=== PATIENT | female | born 1955 | race Caucasian/White ===

== ENCOUNTER 2022-12-13 08:32 | Inpatient (IN) ==
--- NOTE | 2022-11-22 14:53 | PAT Medication Instructions ---
Medication Instructions Date of Service November 22, 2022 Home Medications Medication Instructions Recorded meclizine 25 mg tablet 25 mg PO BID PRN dizziness #90 tabs 06/02/22 cyclobenzaprine 10 mg tablet 10 mg PO HS #30 tabs 10/25/22 meclizine 25 mg tablet 25 mg PO BID PRN cyclobenzaprine 10 mg tablet 10 mg PO HS alpha lipoic acid 600 mg tablet,extended release 600 mg PO QAM docusate sodium 100 mg capsule (Stool Softener) 100 mg PO QAM fexofenadine 180 mg tablet (Eduarda Allergy) 180 mg PO QAM STOP taking 2 weeks before surgery (or as soon as possible if surgery is within 2 weeks) alpha lipoic acid 600 mg tablet,extended release 600 mg PO QAM DO NOT take the morning of surgery docusate sodium 100 mg capsule (Stool Softener) 100 mg PO QAM fexofenadine 180 mg tablet (Eduarda Allergy) 180 mg PO QAM Take morning of surgery With a small sip of water, OTHERWISE NOTHING TO EAT OR DRINK AFTER MIDNIGHT: meclizine 25 mg tablet 25 mg PO BID PRN(if needed) Take evening before surgery meclizine 25 mg tablet 25 mg PO BID PRN(if needed) cyclobenzaprine 10 mg tablet 10 mg PO HS Other Notes If you have any questions please call us at [phone] or [phone] or [phone] or [phone]
--- NOTE | 2022-11-29 13:28 | Anesthesiology Consultation ---
Date of Service November 29, 2022 Assessment & Plan (1) Encounter for pre-operative examination: Chart Review Chart Review: Acceptable Risk for Surgery (pending PCP clearance 12/01/22) and Patient seen in Pre Admission Testing - Awaiting PCP clearance 12/01/22 Per PAT appt on 11/29/22, patient denies any recent travel or large group activities. Pt is NOT vaccinated for Covid. Will leave to surgeon's discretion if preop Covid testing needed. Educated on importance of using Covid precautions one week prior to surgery Teaching & Discussion Pre-Anesthesia Teaching/Discussion Notes: Instructed NPO after midnight before surgery,except medications with 15 cc of water. Medication instructions provided according to the PAT guidelines. History Surgery Operation Date: 12/13/22 09:55 Proposed Procedures p L5-S1 Decompression and Fusion, Spinal Cord Monitoring - Nas Kendall DO Height/Weight Height: 5 ft 5 in Weight: 107.4 kg Allergies Allergy/AdvReac Type Severity Reaction Status Date / Time ciprofloxacin Allergy Mild Rash Verified 11/19/22 12:15 Penicillins Allergy rash Verified 11/19/22 12:15 Medications Home Medications Medication Instructions Recorded Confirmed Last Taken meclizine 25 mg tablet 25 mg PO BID PRN dizziness #90 tabs 06/02/22 11/19/22 Unknown alpha lipoic acid 600 mg 600 mg PO QAM 11/19/22 11/19/22 Unknown tablet,extended release docusate sodium 100 mg capsule 100 mg PO QAM 11/19/22 11/19/22 Unknown (Stool Softener) fexofenadine 180 mg tablet 180 mg PO QAM 11/19/22 11/19/22 Unknown (Eduarda Allergy) cyclobenzaprine 10 mg tablet 10 mg PO HS #30 tabs 11/24/22 Unknown Past Medical History Medical History Benign paroxysmal positional vertigo Currently stable History of diverticulitis (~2014) complicated by perforation, s/p partial bowel resection, s/p colostomy with reversal continues with chronic constipation - at baseline Hyperlipidemia 10 year ASCVD risk score 6.3%. 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 Exercise / Class Metabolic Activity II 4-5 Yardwork/Stairs/Walk up hill (one flight of stairs - no chest pain or SOB ) Past Family History Family History Other No family history of adverse response to anesthesia Past Surgical History Surgical History H/O arthroscopic knee surgery History of colonoscopy (~2014) History of colostomy reversal History of tonsillectomy History of tubal ligation S/P colostomy hx Past Anesthesia History No Hx of Anesthesia Complications and No Family Hx of Anesthesia Complications (with exception to daughter - PONV) History of PONV No Hx of PONV and No Hx of Motion Sickness Social History Smoking Status: Never smoker Do You Dip or Chew Tobacco: No Hx Alcohol Use: No Hx Substance Use: No substance use type: does not use Review of Systems Occ reflux- relieved Gaviscon Hx of snoring - no hx of sleep study S/p blood transfusion 2014 s/p bowel perforation Patient denies chest pain, shortness of breath, dyspnea on exertion, cough, wheezing, palpitations. No hx of seizures, stroke, DC. No hx of blood clots. Physical Exam Vital Signs VITALS BP 132/82 P 90 TEMP 97.8 SP02 96% RESP 16 Constitutional no acute distress ENMT Mouth: no TMJ clicking Thyromental Distance: > or= 3.5 Finger Breadths (3.5) Mallampati Class: II Missing molar Cap to top front teeth Braymer to molar Neck + thick neck; neck extension not limited Respiratory normal respiratory effort; no respiratory distress Auscultation: lungs clear to auscultation bilaterally; no wheezes Cardiovascular Rate/Rhythm: regular rate and regular rhythm Heart Sounds: no murmur Vessels: no carotid bruit Musculoskeletal Spine: no pain with cervical ROM Extremities: extremities normal to inspection Psychiatric Orientation: alert Lab Results Anesthesia Preop Results Results Anesthesia Widget: WBC 7.43 K/ul (4.8-10.8) 11/29/22 Hgb 15.0 g/dl (12.0-16.0) 11/29/22 Hct 44.3 % (37.0-47.0) 11/29/22 Plt 216 K/uL (130-400) 11/29/22 Na 140 mmol/L (136-145) 11/29/22 K 4.1 mmol/L (3.5-5.1) 11/29/22 Cl 106 mmol/L (98-107) 11/29/22 CO2 27 mmol/L (21-32) 11/29/22 BUN 18 mg/dl (6-23) 11/29/22 Creat 0.62 mg/dl (0.6-1.2) 11/29/22 Glucose Level 74 mg/dl (70-99(Fasting)) 11/29/22 PT 10.0 Seconds (9.0-12.0) 11/29/22 PTT 26.8 Seconds (21.0-31.0) 11/29/22 INR 0.9 (0.9-1.1) 11/29/22 Urine Color Yellow 11/29/22 Urine Appearance Clear (Clear) 11/29/22 Urine pH 7.0 (4.5-7.5) 11/29/22 Urine Specific [place] 1.016 (1.000-1.030) 11/29/22 Urine Protein Negative (Negative) 11/29/22 Urine Glucose (UA) Negative (Negative) 11/29/22 Urine Ketones Negative (Negative) 11/29/22 Urine Blood Negative (Negative) 11/29/22 Urine Nitrite Negative (Negative) 11/29/22 Urine Bilirubin Negative (Negative) 11/29/22 Urine Urobilinogen Negative (Negative) 11/29/22 Urine Leukocyte Esterase 1+ (Negative) H 11/29/22 Urine WBC (Auto) 1-5 /hpf (0-5) 11/29/22 Urine RBC (Auto) 0-4 /hpf (0-4) 11/29/22 Urine Hyaline Casts (Auto) 1-5 /lpf (0-5) 11/29/22 Urine Epithelial Cells (Auto) >30 /lpf (0-5) H 11/29/22 Urine Bacteria (Auto) 1+ (Negative) H 11/29/22 Blood Type O Positive 11/29/22 Antibody Screen NEGATIVE 11/29/22 Testing Electrocardiogram Date: 11/29/22 Findings: + NSR @ (85bpm) Rightward axis Chest X-Ray Date: 11/29/22 Findings: + NAD FINDINGS: PA and lateral chest radiographs are obtained. No prior studies are av ailable for comparison at the time of dictation. The heart is mildly enlarged noting atherosclerotic calcification of the thoracic aorta. The pulmonary vasculature is noncongested. There is mild elevation of right hemidiaphragm and bibasilar atelectasis. The lungs and pleural spaces are otherwise clear. There is no pneumothorax. The skeletal structures are osteopenic. The bony thorax appears intact. Degenerative change is noted in the spine. COVID-19 Risk Screen Screening Information COVID-19 Screen Date: 11/29/22 Exposure 21 Days Family/Household +COVID Last 21 Days: No Exposure 10 Days Any COVID Exposure Last 10 Days: No Symptoms Last 10 Days Experienced COVID Sx Last 10 Days: No + COVID 0-90 Days COVID + in Last 0-90 Days: No Risk Plan COVID Risk Plan: No Risk Identified Patient Education COVID Preop Screening Education Complete: Yes
[~2022-12-13 08:32] MED LIST: ACETAMINOPHEN 500 MG TAB PO SCH; CLINDAMYCIN/D5W 900 MG/50 ML BAG IV SCH; CeleBREX 200 MG CAP PO SCH; GABAPENTIN 300 MG CAP PO SCH; LR 15ML/HR IV SCH; LR 60ML/HR IV SCH
[2022-12-13] MEDS ORDERED: fentaNYL citrate PF 100 MCG/2 ML VIAL ONE (09:06)
[2022-12-13] MEDS ORDERED: MIDAZOLAM HCL 1 MG/ML 2ML VIAL ONE (09:06)
--- NOTE | 2022-12-13 09:17 | History & Physical Bridge Note ---
Date of Service December 13, 2022 History & Physical Bridge Note I have examined the patient, reviewed the History & Physical and in the interval since the performance of the History & Physical I have noted the following changes of clinical significance: no changes noted
--- NOTE | 2022-12-13 09:18 | History & Physical Report ---
Date of Service December 13, 2022 Assessment & Plan (1) Neurogenic claudication due to lumbar spinal stenosis: Plan: L5-S1 decompression and fusion History of Present Illness Chief Complaint: Back and leg pain Primary Care Provider: DERREK Ivory This is a 67-year-old female presents with chronic persistent back and leg pain and failing since course of nonoperative care is here for surgical invention. Allergies Allergy/AdvReac Type Severity Reaction Status Date / Time ciprofloxacin Allergy Mild Rash, hives Verified 12/13/22 08:55 Penicillins Allergy rash Verified 12/13/22 08:55 Home Medications Medication Instructions Recorded Confirmed Type meclizine 25 mg tablet 25 mg PO BID PRN dizziness #90 tabs 06/02/22 12/13/22 Rx alpha lipoic acid 600 mg 600 mg PO QAM 11/19/22 12/13/22 History tablet,extended release docusate sodium 100 mg capsule 100 mg PO QAM 11/19/22 12/13/22 History (Stool Softener) fexofenadine 180 mg tablet 180 mg PO QAM 11/19/22 12/13/22 History (Eduarda Allergy) cyclobenzaprine 10 mg tablet 10 mg PO HS #30 tabs 11/24/22 12/13/22 Rx Past Med/Surg History Medical History (Updated 12/13/22 @ 09:18 by Nas Kendall DO) Benign paroxysmal positional vertigo Currently stable History of diverticulitis (~2014) complicated by perforation, s/p partial bowel resection, s/p colostomy with reversal Hyperlipidemia 10 year ASCVD risk score 6.3%. 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 Surgical History H/O arthroscopic knee surgery History of colonoscopy (~2014) History of colostomy reversal History of tonsillectomy History of tubal ligation S/P colostomy hx S/P partial resection of colon (~2014) Family History Other No family history of adverse response to anesthesia Social History Smoking Status: Never smoker Second Hand Exposure: No; Do You Dip or Chew Tobacco: No; Hx Alcohol Use: No Hx Substance Use: No Preferred Language: Faroese Communication Ability: Effective Test Automation Architect Required: No Beliefs That Will Affect Care: None marital status: Current Living Situation: Spouse current occupational status: employed 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
[2022-12-13] MEDS ORDERED: ATROPINE SULFATE 0.1 MG/ML 10ML SYR IV PRN (09:35)
[2022-12-13] MEDS ORDERED: ONDANSETRON INJ 2 MG/ML 2 ML VIAL IV PRN ×2 (09:35→13:19)
[2022-12-13] MEDS ORDERED: ePHEDrine sulfate 50 MG/ML AMP IV PRN (09:35)
[2022-12-13] MEDS ORDERED: BUPIVACAINE/EPINEPHRINE 0.25% 1:200,000 30 ML VIAL ONE (09:41)
[2022-12-13] MEDS ORDERED: FLOSEAL HEMOSTATIC MATRIX 10ML TOP ONE (10:30)
[2022-12-13] MEDS: ceFAZolin 330 MG/ML 1 GM VIAL ONE ×2 (10:30→11:44)
[2022-12-13] MEDS ORDERED: GLYCOPYRROLATE 0.2 MG/ML VIAL ONE (11:25)
[2022-12-13] MEDS ORDERED: LIDOCAINE 2% 2 ML VIAL/AMP(20MG/ML) INFIL ONE (11:25)
[2022-12-13] MEDS ORDERED: DEXAMETHASONE SOD INJ 4 MG/ML VIAL ONE (11:25)
[2022-12-13] MEDS ORDERED: ONDANSETRON INJ 2 MG/ML 2 ML VIAL ONE (11:25)
[2022-12-13] MEDS ORDERED: PROPOFOL IV EMULSION 10 MG/ML 20 ML VIAL IV ONE (11:25)
[2022-12-13] MEDS ORDERED: NEOSTIGMINE METHYLSULFATE 1 MG/ML 10ML VIAL ONE (11:25)
[2022-12-13] MEDS ORDERED: PHENYLEPHRINE 100MCG/ML 5ML SYR ONE (11:25)
[2022-12-13] MEDS ORDERED: ROCURONIUM BROMIDE 10 MG/ML 5 ML VIAL IV ONE (11:25)
--- NOTE | 2022-12-13 11:29 | Operative Report ---
Post Operative Report Pre & Post Diagnosis Operation Date: 12/13/22 09:55 Pre-Op Diagnosis: Neurogenic claudication due to lumbar spinal stenosis Spondylolisthesis L5-S1 morbid obesity Post-Op Diagnosis: Same I identified the patient and participated in the time-out.: Yes Procedure Operation Date: 12/13/22 09:55 Actual Procedures #1 lumbar decompression bilateral medial facetectomies and foraminotomies L4-5 and L5-S1. #2 posterior spinal fusion L5-S1. #3 placed posterior instrumentation L5-S1. #4 interbody fusion L5-S1. #5 placement of Spira 11 x 26 mm cage x2 at L5-S1. #6 placement locally harvested morselized autograft and posterior gutters. #7 placement of I factor combined with V toss in the interbody space and posterior lateral gutters. Surgeon Nas Kendall, DO Travel Registered Nurse Pacu Fe Serrato Estimated Blood Loss 250 Findings See Below The patient is 5 foot 5 weighing over 106 kg with a BMI of 39. The patient's body of this did contribute to significant technical difficulty required deepest retractors longer instruments in order to perform her procedure. This at least 50% increased operative time. Specimens None Indications This is a 67-year-old female who presents above-mentioned diagnosis of balance since course of nonoperative care she is here for surgical invention. Description of Procedure Patient was met with identified informed consent obtained. Patient was then taken to the operative suite underwent patient placed in a prone position on the [facility] top Keshav frame. All bony promises well-padded eyes inspected to ensure no external pressure placed upon them. This point the lumbar spine was prepped and draped in a sterile fashion. Sharp dissection with the assistance of Bovie cautery form down to and exposing the lamina transverse processes of L5 and the sacral ala bilaterally. Obvious bilateral pars defect identified. I Performed a complete laminectomy of L5 including partial laminectomy of L4 including medial facetectomies and foraminotomies addressing all spinal stenosis. Pedicle screws were then placed in L5 and S1 levels bilaterally with assistance of fluoroscopy and appropriately sized boo placed. By way the transforaminal approach and right complete discectomy of L5-S1 was performed endplates guided to subcortically bone 11 x 26 mm Spira cage with I factor tapped in position. Then post the left L5-S1 transforaminal space and again performed an annulotomy and placed a second 11 x 26 mm Spira cage with I factor into position. The rods were then compressed locked in final position bilaterally. The transverse processes of L5 and sacral ala burred to subcortically bone. I factor amount of the test and locally harvested morselized graft placed in posterior gutters. 15 round DAV inserted. The incision was then closed with 1 Vicryl to fascia 2-0 Vicryl subcutaneously and 4 Monocryl for final skin closure. Steri-Strips sterile dressings placed. Patient waken taken to PACU in stable condition. Please note spinal cord monitoring was utilized at the procedure no changes noted. Lastly Fe Serrato was present at the entire surgeon while the patient positioning complex portion of the surgery and final skin closure. I attest to the content of the Intraoperative Record and any orders documented therein. Any exceptions are noted below.
[2022-12-13] MEDS: fentaNYL citrate PF 100 MCG/2 ML VIAL IV PRN ×4 (11:55→12:35)
--- NOTE | 2022-12-13 12:00 | Fluoroscopy Report ---
FL lumbar spine 2-3V CLINICAL HISTORY: L5-S1 DFI COMPARISON STUDY: None. FLUOROSCOPY TIME: 27 seconds FLUOROSCOPY IMAGES: Ka,r: 28.1 mGy FINDINGS: Posterior decompression and fusion at L5-S1 with pedicle screws and rods. Disc spaces are a lso noted. The hardware appears intact. IMPRESSION: Fluoroscopic assistance as above. ACT 112: Negative or not required by law. Electronically signed by: Julio Soriano M.D. 12/13/2022 11:59 AM
--- NOTE | 2022-12-13 12:48 | Anesthesiology Progress Note ---
Date of Service December 13, 2022 Anesthesia Post Procedure Vital Signs Vital Signs: Temp Pulse Resp BP Pulse Ox O2 Del Method O2 Flow Rate 12/13/22 12:40 80 12 112/70 93 Nasal Cannula 3 12/13/22 12:20 81 18 133/77 96 Nasal Cannula 4 12/13/22 12:10 87 14 132/78 96 Nasal Cannula 4 12/13/22 12:00 81 14 154/86 H 92 Nasal Cannula 4 12/13/22 12:30 77 15 126/60 95 Nasal Cannula 4 12/13/22 11:50 94 H 15 166/78 H 96 Nasal Cannula 4 12/13/22 11:43 97.9 F 99 H 19 162/83 H 96 Nasal Cannula 4 12/13/22 08:53 97.7 F 80 20 153/94 H 93 Room Air Pain Intensity Lower Back: Pain Intensity: 5 Transfer of Care Handoff Completed per policy Notes Mental Status: alert / awake / arousable and participated in evaluation Patient Amnestic to Procedure: Yes Nausea / Vomiting: adequately controlled Pain: adequately controlled Airway Patency, RR, SpO2: stable & adequate BP & HR: stable & adequate Hydration State: stable & adequate Anesthetic Complications: no major complications apparent and Pt Satisfied with anesthetic care
[2022-12-13] MEDS ORDERED: HYDROmorphone INJ 1 MG/ML SYRINGE IV PRN (13:19)
[2022-12-13] MEDS ORDERED: ALUMINUM/MAGNESIUM SUSP 30 ML UDC PO PRN (13:19)
[2022-12-13] MEDS ORDERED: ACETAMINOPHEN 1,000 MG/100 ML VIAL IV PRN (13:19)
[2022-12-13] MEDS ORDERED: MAGNESIUM HYDROXIDE SUSP 30 ML UDC PO PRN (13:19)
[2022-12-13] MEDS ORDERED: LORazepam 2 MG/1 ML VIAL IV PRN (13:19)
[2022-12-13] MEDS ORDERED: PROMETHAZINE HCL 12.5 MG in SODIUM CHLORIDE 0.9% 50 ML IV PRN (13:19)
[2022-12-13] MEDS ORDERED: diphenhydrAMINE Capsule 25 MG CAP PO PRN (13:19)
[2022-12-13] MEDS ORDERED: NALOXONE HCL 0.4 MG/1 ML VIAL/CARP IV PRN (13:19)
[2022-12-13] MEDS ORDERED: FAMOTIDINE 20 MG TAB PO PRN (13:19)
[2022-12-13] MEDS ORDERED: DO NOT ADMINISTER PNEUMOCOCCAL VACCINE PRN (13:19)
[2022-12-13] MEDS ORDERED: bisacodyL 10 MG SUPP PR PRN (13:19)
[2022-12-13] MEDS ORDERED: LORazepam 0.5 MG TAB PO PRN (13:19)
[2022-12-13] MEDS ORDERED: SOD PHOSPHATE/SOD BIPHOSPHATE ENEMA 132 ML BTL PR PRN (13:19)
[2022-12-13] MEDS ORDERED: DO NOT ADMINISTER FLU VACCINE PRN (13:19)
[2022-12-13] MEDS ORDERED: METOCLOPRAMIDE HCL INJ 5 MG/ML 2 ML VIAL IV PRN (13:19)
[2022-12-13] MEDS ORDERED: ONDANSETRON 4 MG OD TAB PO PRN (13:19)
[2022-12-13] MEDS ORDERED: hydrOXYzine HCl 25 MG TAB PO PRN (13:19)
[2022-12-13] MEDS ORDERED: MECLIZINE HCL 25 MG TAB PO PRN (13:19)
[2022-12-13] MEDS ORDERED: HYDROmorphone INJ 0.5 MG/0.5 ML SYR IV PRN (13:19)
[2022-12-13] MEDS: LACTATED RINGER'S 1,000 ML IV SCH ×2 (14:04→21:36)
--- NOTE | 2022-12-13 14:21 | Hospitalist Consultation ---
Date of Consultation December 13, 2022 Assessment & Plan (1) Neurogenic claudication due to lumbar spinal stenosis: Patient underwent L5-S1 decompression fusion with Dr. Kendall without complications on 12/13/2022 patient seen postoperatively and was in stable condition that anticipate any medical problems but will survey (2) BMI 39.0-39.9,adult: clearly impacts recovery Plan pt with stable medication issues post op, will chart check but please call back if new needs arise History of Present Illness Attending Physician: Nas Kendall DO History of Present Illness postop medical management Postoperative comanagement for a 67-year-old female underwent L5-S1 decompression fusion on 12/13/[address] Kendall. Patient prehospital had very little health concerns patient was seen in primary care office 12/01/2022 medically optimized for surgery at that time Allergies Allergy/AdvReac Type Severity Reaction Status Date / Time ciprofloxacin Allergy Mild Rash, hives Verified 12/13/22 08:55 Penicillins Allergy rash Verified 12/13/22 08:55 Home Medications Medication Instructions Recorded Confirmed Type meclizine 25 mg tablet 25 mg PO BID PRN dizziness #90 tabs 06/02/22 12/13/22 Rx alpha lipoic acid 600 mg 600 mg PO QAM 11/19/22 12/13/22 History tablet,extended release docusate sodium 100 mg capsule 100 mg PO QAM 11/19/22 12/13/22 History (Stool Softener) fexofenadine 180 mg tablet 180 mg PO QAM 11/19/22 12/13/22 History (Edurada Allergy) cyclobenzaprine 10 mg tablet 10 mg PO HS #30 tabs 11/24/22 12/13/22 Rx Patient History Medical History (Updated 12/13/22 @ 09:18 by Nas Kendall DO) Benign paroxysmal positional vertigo Currently stable History of diverticulitis (~2014) complicated by perforation, s/p partial bowel resection, s/p colostomy with reversal Hyperlipidemia 10 year ASCVD risk score 6.3%. 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 Surgical History H/O arthroscopic knee surgery History of colonoscopy (~2014) History of colostomy reversal History of tonsillectomy History of tubal ligation S/P colostomy hx S/P partial resection of colon (~2014) Family History Other No family history of adverse response to anesthesia Social History Smoking Status: Never smoker Second Hand Exposure: No; Do You Dip or Chew Tobacco: No; Hx Alcohol Use: No Hx Substance Use: No Preferred Language: Polish Communication Ability: Effective Aesthetics Instructor Required: No Beliefs That Will Affect Care: None marital status: Current Living Situation: Spouse current occupational status: employed 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 Feels Safe at Home: Yes Safety Concerns: Feels Safe At This Time Childhood Exposure to Second-Hand Smoke: Yes Dental Care, Regularly: Yes Sunscreen Use: Yes Assistive Devices: Contacts and Glasses Review of Systems Review of Systems: mild distress and fatigue, still some post op anesthesia affects no headache, no visual changes no speech or swallowing issues no chest pain, pressure or palpitations no shortness of breath, cough or wheezes no abdominal pain, nausea or vomiting, diarrhea or constipation no dysuria, hematuria or frequency no focal joint pain or swelling pre operative back pain has improved no bruising, bleeding or rashes no focal signs of weakness or numbness or altered sensation no complaints of anxiety or depression.. Physical Exam Physical Exam: The patient appeared well nourished and normally developed. still sligtly sedated from anesthesia Vital signs as documented. Head exam is normocephalic atraumatic Neck is without JVD, thyromegaly, or carotid bruits. Lungs are clear to auscultation, no focal loss of breath sounds Cardiac exam, Rhythm is regular.. No murmurs, rubs or gallops. Abdominal exam reveals normal bowel sounds, soft non tender, no masses Extremities are nonedematous and both pedal pulses are present Neurologic exam is alert and oriented, no focal loss of strength or sensation Skin is without bruises or rashes Psychologically is without concerns for anxiety or depression.. Results & Data Results & Data Vital Signs (Past 12 Hours) Vital Signs Temp Pulse Pulse Resp BP Pulse Ox O2 Del Method 12/13/22 14:11 87 16 117/64 90 Nasal Cannula 12/13/22 13:10 97.5 F L 84 18 118/75 2 L Nasal Cannula 12/13/22 13:40 79 16 118/75 92 Nasal Cannula 12/13/22 12:40 80 12 112/70 93 Nasal Cannula 12/13/22 12:20 81 18 133/77 96 Nasal Cannula 12/13/22 12:10 87 14 132/78 96 Nasal Cannula 12/13/22 12:00 81 14 154/86 H 92 Nasal Cannula 12/13/22 12:30 77 15 126/60 95 Nasal Cannula 12/13/22 11:50 94 H 15 166/78 H 96 Nasal Cannula 12/13/22 11:43 97.9 F 99 H 19 162/83 H 96 Nasal Cannula 12/13/22 08:53 97.7 F 80 20 153/94 H 93 Room Air O2 Flow Rate 12/13/22 14:11 12/13/22 13:10 12/13/22 13:40 2 12/13/22 12:40 3 12/13/22 12:20 4 12/13/22 12:10 4 12/13/22 12:00 4 12/13/22 12:30 4 12/13/22 11:50 4 12/13/22 11:43 4 12/13/22 08:53 PG Care Time/CCT Total # of Minutes Spent Total Time Spent with Patient: Total time spent is greater than 50% in coordination of care (as documented) at patient's floor/unit and/or counseling patient: Coding Level of Care Code 52576 IN/OBS CONSULT LVL 2,35M Diagnoses Neurogenic claudication due to lumbar spinal stenosis M48.062 BMI 39.0-39.9,adult Z68.39
[2022-12-13] MEDS: CLINDAMYCIN/D5W 600 MG/50 ML BAG IV SCH (17:02)
[2022-12-13] MEDS: oxyCODONE HCL IR 5 MG TAB (IMMEDIATE RELEASE) PO PRN ×2 (18:05→22:10)
[2022-12-13] MEDS: DOCUSATE SODIUM/SENNA 50/8.6MG TAB PO SCH (20:21)
[2022-12-13] MEDS: CYCLOBENZAPRINE HCL 10 MG TAB PO SCH (20:21)
[2022-12-14] MEDS: CLINDAMYCIN/D5W 600 MG/50 ML BAG IV SCH (00:54)
[2022-12-14] MEDS: POLYETHYLENE (MIRALAX) 17 GM PACK PO SCH ×4 (05:44→23:34)
[2022-12-14] MEDS: ACETAMINOPHEN 500 MG TAB PO PRN ×2 (05:46→15:11)
[2022-12-14] MEDS: LACTATED RINGER'S 1,000 ML IV SCH (06:01)
[2022-12-14 07:57] LABS: Basophils # (auto) 0.04 K/uL (0-0.2); Basophils % (auto) 0.3 %; Eosinophils # (auto) 0.09 K/uL (0-0.50); Eosinophils % (auto) 0.8 %; Hematocrit (blood only) 37.8 % (37.0-47.0); Hemoglobin 12.6 g/dl (12.0-16.0); Immature Granulocytes # (auto) 0.08 K/uL (0.01-0.20); Immature Granulocytes % (auto) 0.7 %; Lymphocytes # (auto) 1.59 K/uL (1.2-3.4); Lymphocytes % (auto) 13.3 %; Mean Corpuscular Hemoglobin 30.8 pg (25.0-34.0); Mean Corpuscular Hgb Conc 33.3 g/dL (32.0-36.0); Mean Corpuscular Volume 92.4 fL (80.0-100.0); Mean Platelet Volume 10.6 fL (9.4-12.4); Monocytes # (auto) 0.97 K/uL (0.11-0.59); Monocytes % (auto) 8.1 %; Neutrophils # (auto) 9.16 K/uL (1.40-6.50); Neutrophils % (auto) 76.8 %; Platelet Count 183 K/uL (130-400); RDW Coefficient of Variation 13.5 % (11.5-14.5); RDW Standard Deviation 45.7 fL (36.4-46.3); Red Blood Count 4.09 M/uL (4.20-5.40); White Blood Count 11.93 K/ul (4.8-10.8)
[2022-12-14 08:12] LABS: BUN Creatinine Ratio 17.9 (10-20); Calcium 8.6 mg/dl (8.6-10.3); Creatinine Clr Calc Pharmacy 101.4 ml/min; Est GFR (African American) 106.9 ml/min; Est GFR (Non-African American) 92.2 ml/min; Potassium 4.1 mmol/L (3.5-5.1)
[2022-12-14] MEDS: dexAMETHasone 6 MG in SYRINGE 0 ML IV SCH (08:17)
[2022-12-14] MEDS: FEXOFENADINE HCL 180 MG TAB PO SCH (08:17)
[2022-12-14] MEDS ORDERED: ALPHA LIPOIC ACID 600 MG PO SCH (09:00)
--- NOTE | 2022-12-14 10:24 | Orthopedic Progress Note ---
Date of Service December 14, 2022 Assessment & Plan (1) Neurogenic claudication due to lumbar spinal stenosis: Plan: At this time continue physical therapy monitor her DAV output hopefully discharge home in the next few days. Admission and Anticipated Discharge Date Admission Date: December 13, 2022 Subjective Back pain controlled leg pain improved Physical Exam Physical Exam: Patient is in the chair at the bedside. Is constricted testing. Appears co mfortable. Results & Data Vital Signs (Past 12 Hours) Vital Signs Temp Pulse Resp BP Pulse Ox O2 Del Method 12/14/22 07:51 36.4 C L 89 16 118/81 95 Room Air 12/14/22 03:50 36.6 C 80 18 122/81 98 Room Air 12/13/22 23:30 36.6 C 72 18 115/72 96 Room Air Queries Orthopedic Spine Obesity: Yes
[2022-12-14] MEDS: CYCLOBENZAPRINE HCL 10 MG TAB PO SCH (20:19)
[2022-12-14] MEDS: DOCUSATE SODIUM/SENNA 50/8.6MG TAB PO SCH (20:19)
[2022-12-14] MEDS: traMADol HCL 50 MG TABLET PO PRN (22:38)
[2022-12-15] MEDS: traMADol HCL 50 MG TABLET PO PRN ×3 (02:52→19:56)
[2022-12-15] MEDS: POLYETHYLENE (MIRALAX) 17 GM PACK PO SCH ×4 (05:42→23:22)
[2022-12-15] MEDS: FEXOFENADINE HCL 180 MG TAB PO SCH (08:24)
[2022-12-15] MEDS: dexAMETHasone 6 MG in SYRINGE 0 ML IV SCH (08:24)
--- NOTE | 2022-12-15 09:43 | Orthopedic Progress Note ---
Date of Service December 15, 2022 Assessment & Plan (1) Neurogenic claudication due to lumbar spinal stenosis: Plan: At this time we will continue physical therapy monitor DAV output anticipate discharge home tomorrow. Admission and Anticipated Discharge Date Admission Date: December 13, 2022 Subjective Back pain controlled leg pain markedly improved Physical Exam Physical Exam: Patient is up and ambulating halls. Is good strength testing. Results & Data Vital Signs (Past 12 Hours) Vital Signs Temp Pulse Resp BP Pulse Ox O2 Del Method 12/15/22 07:36 36.4 C L 87 18 113/70 93 Room Air Queries Orthopedic Spine Obesity: Yes
[2022-12-15] MEDS: ACETAMINOPHEN 500 MG TAB PO PRN (18:29)
[2022-12-15] MEDS: CYCLOBENZAPRINE HCL 10 MG TAB PO SCH (20:00)
[2022-12-15] MEDS: DOCUSATE SODIUM/SENNA 50/8.6MG TAB PO SCH (20:00)
[2022-12-16] MEDS: POLYETHYLENE (MIRALAX) 17 GM PACK PO SCH (05:55)
[2022-12-16] MEDS: traMADol HCL 50 MG TABLET PO PRN (09:39)
[2022-12-16] MEDS: FEXOFENADINE HCL 180 MG TAB PO SCH (09:40)
[2022-12-16] MEDS: dexAMETHasone 6 MG in SYRINGE 0 ML IV SCH (09:40)
--- NOTE | 2022-12-16 10:17 | Discharge Summary ---
Date of Service December 16, 2022 Admission HPI Per Admitting Provider This is a 67-year-old female presents with chronic persistent back and leg pain and failing since course of nonoperative care is here for surgical invention. Principal Diagnosis Lumbar spinal stenosis with neurogenic claudication Discharge Data Allergies Allergy/AdvReac Type Severity Reaction Status Date / Time ciprofloxacin Allergy Mild Rash, hives Verified 12/13/22 08:55 Penicillins Allergy rash Verified 12/13/22 08:55 Consultations 12/13/22 13:19 Consult Hospitalist Routine Procedures Performed Operation Date: 12/13/22 09:55 Actual Procedures p L5-S1 Decompression and Fusion, Spinal Cord Monitoring(Not Applicable) - Nas Kendall DO Ordered Studies 12/13/22 09:55 [place] lumbar spine 2-3V Routine Hospital Course (1) Neurogenic claudication due to lumbar spinal stenosis: Patient 1 lumbar decompression fusion tolerated as well as taken orthopedic for postop labor postop day 1 she was up and ambulating breast postop day #2 postop day #3 she was ambulating well DAV drain decreased probably. Excellent strength testing. Subsidy discharged home. Discharge orders instructions found in chart for further review. Total Time Total Time Spent Total Time Spent (In Minutes): 20 minutes Discharge Plan Discharge Items Patient Disposition: Home - Self-Care Reason For Visit: Spinal Stenosis, Lumbar Region without Neurogenic Discharge Diagnosis: Lumbar spinal stenosis with neurogenic claudication Activity: As commented below Non-emergency contact: Primary Care Provider Call non-emergency contact if: you have any medication questions Follow-up/Referrals: Ashley Mercado CRNP [Primary Care Provider] - Diet: Regular Addtl Attending Provider Instructions: ACTIVITY RECOMMENDATIONS: SELF CARE INSTRUCTIONS AFTER THORACIC/LUMBAR FUSIONS 1. You may walk to your tolerance. It is good exercise for your legs and back. Expect some back and intermittent leg aches and pains. 2. You may perform "counter-top" level activities (make a sandwich, petty with a project, etc.). 3. No bending or lifting of more than 10 pounds or back twisting of any nature (roll like a log when turning in bed). 4. You may ride in a car for 20-30 minutes at a time. No driving until after your first visit with your doctor. 5. Frequent changes of position and restricting sitting to 30 minutes at a time will help limit the amount of back spasms and stiffness you may experience. 6. You may discontinue the use of ambulatory aids (cane, crutches, etc.) once your strength and confidence allow. 7. You may police captain senior the shower and let water strike your incision when you arrive home at least once daily. Do not take a tub bath, sit in a hot tub or go into a swimming pool until after your first recheck in the office. SPECIAL CARE INSTRUCTIONS: VERY IMPORTANT TO READ AND REVIEW A. Your surgical incision has been closed with a cosmetic suture under the skin that will dissolve in about 6 weeks. In 14 days, you can use a pair of clean scissors and cut the suture that is left outside of the skin at t he ends of your incision. 1. The small skin tapes can be removed 7 days after surgery if they have not fallen off by that point. 2. You may keep the wound open to air as much as possible to promote healing after post-op day number 5 unless told otherwise by your doctor. 3. If you think the wound looks like it is becoming infected (redness or worsening drainage) and/or you are experiencing fever, chill or worsening back pain and muscle spasms, contact the office so that we may evaluate you as soon as possible. B. Complications are uncommon, but please contact us if you have any signs or symptoms of: 1. wound infection (fever higher than 102.5 degrees F, redness, separation of wound, drainage, or increasing pain from the incision) 2. blood clots in legs (pain, swelling, redness and warmth in legs) 3. urinary tract infection (fever higher than 102.5 degrees F, burning upon urination or increased frequency of urination) 4. nerve problems (inability to walk on your toes or heels, numbness, loss of bowel or bladder control) 5. any other symptoms that concern you C. Please call the office at if you have any concerns or questions about your operation or recovery. D. No smoking! Smoking drastically decreases the chance of a solid fusion. E. Do not take any anti-inflammatory medications (Indocin, Advil, Motrin, Aspirin, Naprosyn, etc.) as these may inhibit the chance of a solid fusion. Tylenol is okay to take for pain. MANAGING PAIN AFTER SPINAL SURGERY 1. Narcotic medication is intended for short-term use and will be provided for surgical pain. Surgical pain usually lasts for a period of 4-6 weeks. Narcotic medication includes Percocet, Vicodin, Darvocet, Tylenol #3 or Lortab. 2. Longer-term pain is more appropriately treated with non-narcotic medication such as Tylenol ES. 3. Muscle spasm is not appropriately treated with narcotics. Muscle relaxers such as Soma, Flexeril or Skelaxin can be used along with Tylenol ES. 4. Remember that we all live with some "aches and pains". This is not unusual or uncommon after an injury or as we get older. a. Back pain is expected and may include muscle spasms for 4 to 6 weeks after surgery. The pain should gradually improve. If the pain worsens for no apparent reason, please contact the office. b. Intermittent leg pain may also be experienced and should not be concerned about unless it worsens for no apparent reason. If so, please contact the office. 5. We will provide appropriate medication within the normal guidelines of their prescribed use. We will also be very cautious and aware of potential abuse and extended duration of patients' medication needs. a. Pain medications are for your comfort and to assist with sleep and rest so that the tissue can heal. They are not provided in order to return to normal activity and should not be used through the day. To do so or worsening pain at night can result from ongoing tissue damage and development of tolerance to the prescribed medicine. 6. Please allow 2-3 days to process refills. Prescriptions will not be mailed but must be picked up at the office. FOLLOW UP VISIT: Keep your scheduled follow-up appointment. Any questions, please call the office at . Pending Studies at Discharge: No Stand-Alone Forms: My [facility], Smoking Cessation Medications and DC Order Prescriptions: New tramadol 50 mg tablet 50 mg PO Q6H PRN (Reason: pain, moderate) Qty: 30 0RF oxycodone 5 mg tablet 5 mg PO Q6H PRN (Reason: pain) Qty: 30 0RF Continued cyclobenzaprine 10 mg tablet 10 mg PO HS Qty: 30 0RF meclizine 25 mg tablet 25 mg PO BID PRN (Reason: dizziness) Qty: 90 0RF fexofenadine [Eduarda Allergy] 180 mg tablet 180 mg PO QAM docusate sodium [Stool Softener] 100 mg capsule 100 mg PO QAM alpha lipoic acid 600 mg tablet extended release 600 mg PO QAM Discharge Orders: Discharge Order (Routine); Ordered 12/16/22 Ordered By: Nas Kendall Admission Data Admit Date/Time: 12/13/22 11:33 Attending Provider: Nas Kendall Admit Provider: Nas Kendall Primary Care Provider: Ashley Mercado Other Providers: Jose Skinner ; Jose Adan ; Liliana Smith
--- NOTE | 2023-01-10 08:53 | Coding Query ---
By way of a transforaminal approach on the left at L5-S1 and annulotomy was performed remainder of the disc removed endplates curetted to bleeding cortical bone and a second 11 x 26 mm Spira cage filled with I factor tapped in position. CODING QUERY To promote full compliance with coding requirements relating to patient care, provider participation is requested in all cases of file keeper uncertainty. Please assist us with the question(s) below: Coding Question(s): Per the OP report " Then post the left L5-S1 transforaminal space and again performed an annulotomy and placed a second 11 x 26 mm Spira cage with I factor into position." Could you please describe this part of the procedure in more detail. It can't be coded the way it currently reads. I.E. location of second cage, if a discectomy was involved, etc. Physician's Response(s): Thank you Tish Batista Principal Diagnosis: "that condition established after study, to be chiefly responsible for occasioning the admission of the patient to the hospital for care." Co-Existing Principal Diagnosis: "when two or more diagnoses equally meet the criteria for principal diagnosis as determined by the circumstances of admission, diagnostic work up, and/or therapy provided, and the Alphabetic Index, Tabular List, or another coding guideline does not provide sequencing direction, any one of the diagnoses may be sequenced first." "When the physician has documented what appears to be a current diagnosis in the body of the record, but has not included the diagnosis in the final diagnostic statement, the physician should be asked whether the diagnosis should be added." (Source [facility] 2 QTR90. p3-4) MARAL
== END 2022-12-16 11:42 | disposition home or self-care (01) | DRG 455 ==
LOC: ASU 08:32 → 3N 11:33